=== PATIENT | female | born 1970 | race Asian ===

== ENCOUNTER → 2022-09-16 10:06 | Outpatient (CLI) | payer OTHER, SELFPAY ==
--- NOTE | 2022-09-16 | DI.MRI.S_ITS ---
BREAST MRI OF BOTH BREASTS: 09/16/2022 CLINICAL: Breast Cancer. PROCEDURE: MR BREAST BI WO/W CON INDICATIONS: BREAST CANCER TECHNIQUE: The patient was placed prone in a dedicated breast imaging coil. Precontrast axial STIR and 3D FLASH without fat saturation sequences were obtained. Both before and after bolus injection of contrast, sequential 1-minute axial 3D FLASH with fat saturation sequences for 3 time points, with subtraction images and maximum intensity projections (MIP's) generated. Delayed sagittal FLASH images with fat saturation were also obtained. CONTRAST: 20 cc ProHance IV contrast. Computer-aided detection, including computer algorithm analysis of MRI image data for lesion detection and characterization, pharmacokinetic analysis, with further physician review for interpretation, was performed. COMPARISON: [facility], , POST PROCEDURE MAMMOGRAM, 08/17/2022, 11:13. [facility], , US GUIDED BREAST BIOPSY, 08/17/2022, 9:29. [facility], MM DIAGNOSTIC MAMMO BI, 08/11/2022, 11:50. [facility], , US LEFT BREAST, 08/11/2022, 11:50. [facility], , US RIGHT BREAST, 08/11/2022, 11:43. FINDINGS: Image quality: Good. There is mild background parenchymal enhancement. Right breast: Right breast 12 o'clock middle depth irregular enhancing mass measuring 2.4 x 2.4 x 1.8 cm, ( and ). The biopsy clip is not well seen on the precontrast T1 images but is seen on prior post clip mammogram. Kinetic analysis demonstrates slow initial phase and persistant delayed phase. Right breast central to the nipple posterior depth lobulated enhancing mass measuring 1 x 1 x 0.9 cm, ( and ). This is faintly visualized on prior mammogram in retrospect. This is located 1.7 cm posterior and inferior to the dominant lesion. Kinetic analysis demonstrates slow initial phase and persistant delayed phase. Multiple small T2 hyperintense and intrinsic T1 hyperintense cysts. Left breast: No mass or suspicious enhancement. Multiple small T2 hyperintense and intrinsic T1 hyperintense cysts. Miscellaneous: No pathologically enlarged lymph nodes. However, right axillary tail there is a prominent lymph node with a preserved fatty hilum measuring approximately 0.7 cm short axis diameter, (). IMPRESSION: INCOMPLETE: NEEDS ADDITIONAL IMAGING EVALUATION 1. Right breast: 12 o'clock middle depth irregular enhancing mass measuring 2.4 cm. This is consistent with the biopsy-proven malignancy. 2. Right breast: Central to the nipple posterior depth lobular enhancing mass measuring 1 cm. This is most consistent with a satellite lesion. This is located 1.7 cm posterior and inferior to the dominant lesion. 3. Left breast: No mass or suspicious enhancement. 4. Multiple small bilateral cysts. -Future imaging is recommended as follows: 02/08/2023 left mammogram and an ultrasound. 5. Lymph nodes: Prominent right axillary tail node is mildly suspicious. -Recommend second-look ultrasound and ultrasound-guided biopsy. BIRADS 0. COMMENT: The imaging literature indicates that a negative contrast breast MRI examination has a high sensitivity and a moderate specificity for detecting and excluding invasive carcinomas to a detection threshold of 3-5 mm; nonetheless, appropriate clinical and mammographic follow-up are recommended. MRI is not sensitive for detecting DCIS (ductal carcinoma in situ) and may not detect large invasive neoplasms that show only minimal enhancement such as mucinous carcinoma. If there are suspicious calcifications or clinically worrisome palpable masses, then biopsy should still be considered. Invasive neoplasms can be hidden by co-existent and benign enhancement caused by mastitis, hormone therapy effects, radiation therapy, , and recent biopsy or surgery. False positive examinations can occur in a number of circumstances, including breasts that have recently been subject to invasive procedures and those that contain atypical ductal hyperplasia, hormonally stimulated glandular tissue, fat necrosis, or radial scars. Dictated by: Shaq Franklin M.D. on 09/16/2022 at 14:23 This exam was interpreted at Station ID: [id number]. Electronically Signed By: Shaq Franklin M.D. [facility] [place]:09/18/2022 09:28:40 Entry: - 09/18/2022 13:15:24 letter sent: Additional Imaging Needed ACR BI-RADS Category 0: Incomplete 3340F
== END ==
PROVIDERS: PCP Physician Assistant
DX: C50.811 Malignant neoplasm of overlapping sites of right female breast (principal); N63.41 Unspecified lump in right breast, subareolar; N60.01 Solitary cyst of right breast; N60.02 Solitary cyst of left breast; R59.0 Localized enlarged lymph nodes
CPT/HCPCS: 77049; A9579

== ENCOUNTER → 2023-01-15 10:53 | Outpatient (CLI) | payer OTHER, SELFPAY ==
--- NOTE | 2023-01-15 | DI.MRI.S_ITS ---
BREAST MRI OF BOTH BREASTS: 01/15/2023 CLINICAL: MRI right. breast cancer. PROCEDURE: MR BREAST BI WO/W CON INDICATIONS: RIGHT BREAST CANCER TECHNIQUE: The patient was placed prone in a dedicated breast imaging coil. Precontrast axial STIR and 3D FLASH without fat saturation sequences were obtained. Both before and after bolus injection of contrast, sequential 1-minute axial 3D FLASH with fat saturation sequences for 3 time points, with subtraction images and maximum intensity projections (MIP's) generated. Delayed sagittal FLASH images with fat saturation were also obtained. CONTRAST: 20 cc ProHance IV contrast. Computer-aided detection, including computer algorithm analysis of MRI image data for lesion detection and characterization, pharmacokinetic analysis, with further physician review for interpretation, was performed. COMPARISON: [facility], RG, US LEFT BREAST, 08/11/2022, 11:50. Outside Film, US, US BREAST LIMITED LEFT, 08/11/2022, 11:50. Outside Film, MG, MG BREAST SPECIMEN RIGHT, 10/23/2022, 12:39. Outside Film, MG, MG POST CLIP PLACEMENT RIGHT, 10/23/2022, 10:18. Outside Film, US, US PREOP BREAST WIRE LOC RIGHT, 10/23/2022, 8:18. Outside Film, MG, MG POST CLIP PLACEMENT RIGHT, 09/29/2022, 12:52. Outside Film, US, US BIOPSY BREAST 1ST LESION RIGHT, 09/29/2022, 11:32. [facility], , MR BREAST BI WO/W CON, 09/16/2022, 10:53. FINDINGS: Image quality: Excellent. There is mild background parenchymal enhancement. Right breast: Right breast 12 o'clock anterior/middle depth lumpectomy cavity with proteinaceous T1 intrinsic hyperintense/T2 hyperintense debris measuring 0.8 cm, (). There is rim and curvilinear surrounding enhancement. Right breast skin thickening. A few small scattered T2 hyperintense cysts. Left breast: No mass or suspicious enhancement. Several small scattered T2 hyperintense cysts. The previously seen cyst in the left breast 1 o'clock region is unchanged. A cyst previously seen in the 12 o'clock middle depth region is decreased. Miscellaneous: Postoperative findings in the right axilla. There is a curvilinear enhancement in the few small lymph nodes. No enlarged lymph nodes seen. IMPRESSION: BENIGN 1. Right breast: No mass identified. Curvilinear enhancement surrounding the right breast tiny lumpectomy cavity at 12 o'clock anterior/middle depth. Favor post surgical change. 2. Left breast: No mass or suspicious enhancement. Multiple small cysts are benign. 3. Lymph nodes: No enlarged lymph nodes. Suspect postoperative enhancement at the right axilla. BIRADS 2 A screening mammogram is recommended. July 2023 COMMENT: The imaging literature indicates that a negative contrast breast MRI examination has a high sensitivity and a moderate specificity for detecting and excluding invasive carcinomas to a detection threshold of 3-5 mm; nonetheless, appropriate clinical and mammographic follow-up are recommended. MRI is not sensitive for detecting DCIS (ductal carcinoma in situ) and may not detect large invasive neoplasms that show only minimal enhancement such as mucinous carcinoma. If there are suspicious calcifications or clinically worrisome palpable masses, then biopsy should still be considered. Invasive neoplasms can be hidden by co-existent and benign enhancement caused by mastitis, hormone therapy effects, radiation therapy, , and recent biopsy or surgery. False positive examinations can occur in a number of circumstances, including breasts that have recently been subject to invasive procedures and those that contain atypical ductal hyperplasia, hormonally stimulated glandular tissue, fat necrosis, or radial scars. Dictated by: Shaq Franklin M.D. on 01/15/2023 at 13:36 This exam was interpreted at Station ID: [id number]. Electronically Signed By: Shaq Franklin M.D. [facility]/:01/15/2023 14:14:10 Entry: aa - 01/18/2023 09:08:53 ACR BI-RADS Category 2: Benign Finding(s) 3342F
== END ==
PROVIDERS: PCP Physician Assistant; Referring Provider Surgery; Visit Provider Surgery
DX: C50.911 Malignant neoplasm of unspecified site of right female breast (principal); N60.02 Solitary cyst of left breast
CPT/HCPCS: 77049; A9579

== ENCOUNTER → 2023-05-26 09:20 | Outpatient (CLI) | payer OTHER, SELFPAY ==
--- NOTE | 2023-05-26 | DI.US.S_ITS ---
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 Additional endovaginal scanning was necessary due to incomplete visualization of the adnexal and endometrial structures by transabdominal scanning. COMPARISON: None. FINDINGS: Uterus: Uterus is anteverted and normal in size at 8 x 5.1 x 3.9 cm. The myometrium is heterogeneous. The endometrial stripe is thickened and heterogeneous at 22 mm. No abnormal vascularity is seen. Ovaries: Neither ovary is seen. No adnexal masses are seen on either side. Other: No pathologic free abdominal or pelvic fluid. IMPRESSION: Neither ovary is seen. No adnexal masses are seen on either side. The endometrial stripe is grossly thickened in this postmenopausal patient. No abnormal vascularity can be seen. Differential diagnosis includes endometrial hyperplasia and endometrial neoplasm. - Please correlate with endometrial histology, if clinically appropriate. We strive to produce accurate, complete, and clear reports of imaging services. To assist us in improving patient care, this report was composed using standard report templates and voice recognition software. Therefore, it may contain abnormal punctuation, insertions and/or omissions. Occasional wrong-word or sound-alike substitutions may occur. Though we review the report and make efforts to correct it, we do recommend that the report be read carefully in proper context to recognize any text inaccuracies. Dictated by: Prashanth Dixon M.D. on 05/26/2023 at 17:25 Approved by: Prashanth Dixon M.D. on 05/26/2023 at 17:29
[2023-05-26 11:06] LABS: Cancer Antigen 125 7.7 U/mL (0-35)
== END ==
PROVIDERS: PCP Physician Assistant; Referring Provider Obstetrics & Gynecology Gynecologic Oncology; Visit Provider Obstetrics & Gynecology Gynecologic Oncology
DX: Z15.01 Genetic susceptibility to malignant neoplasm of breast (principal); Z15.02 Genetic susceptibility to malignant neoplasm of ovary; Z15.09 Genetic susceptibility to other malignant neoplasm
CPT/HCPCS: 36415; 76830; 76856; 86304